=== PATIENT | male | born 1995 | race American Indian/Alaskan Native ===

== ENCOUNTER 2016-05-17 21:15 | Emergency (ER) | payer OTHER ==
[2016-05-17 23:11] LABS: Basophils % (Auto) 0.2 % (0.0-1.8); Hematocrit 44.3 % (35.5-45.6); Hemoglobin 14.3 gm/dl (11.8-15.2); Mean Corpuscular HGB Conc 32 % (32-34); Mean Corpuscular Volume 79 fl (84-94); Platelet Count 214 K/mm3 (140-440); Red Blood Count 5.62 M/mm3 (3.65-5.03); Red Cell Distribution Width 13.6 % (13.2-15.2)
[2016-05-17 23:24] LABS: Mean Corpuscular Hemoglobin 26 pg (28-32)
[2016-05-17 23:46] LABS: Anion Gap 19 mmol/L; Blood Urea Nitrogen 9 mg/dL (9-20); Calcium 9.1 mg/dL (8.4-10.2); Carbon Dioxide 24 mmol/L (22-30); Chloride 96.4 mmol/L (98-107); Glucose 89 mg/dL (75-100); Potassium 3.8 mmol/L (3.6-5.0); Sodium 136 mmol/L (137-145)
[2016-05-18 00:38] LABS: Bacteria,Urine 1+ /HPF (Negative); Bilirubin,Urine NEG (Negative); Blood,Urine NEG (Negative); Ketones,Urine 80 mg/dL (Negative); Leukocyte Esterase,Urine NEG (Negative); Mucus,Urine 2+ /HPF; Nitrite,Urine NEG (Negative); Urobilinogen,Urine < 2.0 mg/dL (<2.0)
[2016-05-18 04:02] VITALS: BP 141/94
--- NOTE | 2016-05-20 12:35 | ED Elopement Review ---
ED Pt Elopement review - Results review Lab results: Laboratory Tests 05/17/16 05/17/16 05/18/16 23:00 23:00 00:00 WBC 16.0 H RBC 5.62 H Hgb 14.3 Hct 44.3 MCV 79 L MCH 26 L MCHC 32 RDW 13.6 Plt Count 214 Lymph % (Auto) 6.3 L Lee % (Auto) 4.7 Eos % (Auto) 0.0 Baso % (Auto) 0.2 Lymph # 1.0 L Lee # 0.7 Eos # 0.0 Baso # 0.0 Seg Neutrophils % 88.8 H Seg Neutrophils # 14.2 H Sodium 136 L Potassium 3.8 Chloride 96.4 L Carbon Dioxide 24 Anion Gap 19 BUN 9 Creatinine 1.0 Estimated GFR > 60 BUN/Creatinine Ratio 9.00 Glucose 89 Calcium 9.1 Urine Color Yellow Urine Turbidity Clear Urine pH 6.0 Ur Specific [place] 1.034 H Urine Protein 100 mg/dl Urine Glucose (UA) Neg Urine Ketones 80 Urine Blood Neg Urine Nitrite Neg Urine Bilirubin Neg Urine Urobilinogen < 2.0 Ur Leukocyte Esterase Neg Urine WBC (Auto) 4.0 Urine RBC (Auto) 1.0 U Epithel Cells (Auto) < 1.0 Urine Bacteria (Auto) 1+ Urine Mucus 2+ - Call Back decision Pt Call Back Decision: No action required
== END 2016-05-18 04:00 | disposition left against medical advice (07) ==
LOC: ED 21:15
DX: R19.7 Diarrhea, unspecified (principal); R11.10 Vomiting, unspecified; R10.9 Unspecified abdominal pain; R51 Headache; Z53.21 Procedure and treatment not carried out due to patient leaving prior to being seen by health care provider
CPT/HCPCS: 36415; 80048; 81001; 85025